=== PATIENT | female | born 1950 | race Caucasian/White ===

== ENCOUNTER 2017-11-18 14:01 | Day surgery (SDC) | payer MEDICARE, MEDICAID ==
[~2017-11-18] VITALS: Ht 167.6 cm; Wt 60.8 kg
[2017-11-18] VITALS (9 sets, daily range): BP systolic 136–163; BP diastolic 65–97
[~2017-11-18 14:01] MED LIST: ALBU8HFA PO; HYDR-565 PO; LISI-604 PO; oxygen
[2017-11-18] MEDS ORDERED: normal saline 1000ml 1,000 ML IV SCH (14:20)
[2017-11-18] MEDS ORDERED: LORazepam 0.5 MG tablet PO PRN (14:20)
[2017-11-18] MEDS ORDERED: diphenhydrAMINE 25mg capsule PO PRN (14:20)
[2017-11-18] MEDS ORDERED: LIDOcaine/PRILOcaine 5gm cream TP ONE (14:25)
[2017-11-18] MEDS ORDERED: AMLO-507 PO (14:33)
[2017-11-18] MEDS ORDERED: LIDOcaine 1% (10mg/ml) 2ml vial ONE (14:43)
[2017-11-18] MEDS ORDERED: verapamil 2.5 mg/ml inj IV ONE ×2 (16:07→16:14)
[2017-11-18] MEDS ORDERED: iohexol 350MG/ML 100ml bottle IV ONE (16:07)
[2017-11-18] MEDS ORDERED: fentaNYL/PF 50MCG/1 ML 2ML syringe ONE (16:07)
[2017-11-18] MEDS ORDERED: heparin 1,000unit/ml 10ml vial 10 ML ONE (16:07)
[2017-11-18] MEDS ORDERED: nitroGLYCERIN-Tridil 50MG/D5W 250 ML IV ONE (16:07)
[2017-11-18] MEDS ORDERED: midazolam 2 mg/2 ml injection ONE (16:07)
[2017-11-18] MEDS ORDERED: LIDOcaine 1%/PF (10mg/ml) 5ml vial ONE ×2 (16:08→16:41)
[2017-11-18] MEDS ORDERED: HYDROmorphone 1 mg/ml syringe ONE ×2 (16:35→16:50)
== END 2017-11-18 19:55 | disposition home or self-care (01) ==
LOC: SSTAY O 14:01
PROVIDERS: ATTEND Internal Medicine Interventional Cardiology
DX: I25.10 Atherosclerotic heart disease of native coronary artery without angina pectoris (principal); Z85.828 Personal history of other malignant neoplasm of skin; M19.90 Unspecified osteoarthritis, unspecified site; J45.909 Unspecified asthma, uncomplicated; I73.9 Peripheral vascular disease, unspecified; Z88.6 Allergy status to analgesic agent; Z88.0 Allergy status to penicillin; Z88.8 Allergy status to other drugs, medicaments and biological substances; Z88.2 Allergy status to sulfonamides
CPT/HCPCS: 93458; A6257; C1760; C1769; J1170; J1644; J2001; J2250; J3490; J7030; Q0163; Q9967; 99152; A4620; J3010

== ENCOUNTER 2018-11-23 13:56 | Day surgery (SDC) | payer MEDICARE, MEDICAID ==
[~2018-11-23] VITALS: Ht 167.6 cm; Wt 63.2 kg
[2018-11-23] VITALS (8 sets, daily range): BP systolic 137–164; BP diastolic 58–88
[~2018-11-23 13:56] MED LIST changes: +AMLO-507 PO; +HYDR-4353 PO; -HYDR-565 PO; -LISI-604 PO
[2018-11-23] MEDS ORDERED: normal saline 1000ml 1,000 ML IV SCH (14:15)
[2018-11-23] MEDS ORDERED: diphenhydrAMINE 25mg capsule PO ONE (14:15)
[2018-11-23] MEDS ORDERED: LORazepam 0.5 MG tablet PO ONE (14:15)
[2018-11-23] MEDS ORDERED: NITR0.4T51 SL (14:21)
[2018-11-23] MEDS ORDERED: AMLO5TAB4 PO (14:21)
[2018-11-23] MEDS ORDERED: fentaNYL/PF 50MCG/1 ML 2ML syringe ONE (16:00)
[2018-11-23] MEDS ORDERED: iohexol 350MG/ML 100ml bottle IV ONE (16:00)
[2018-11-23] MEDS ORDERED: LIDOcaine 1% (10mg/ml)w/preservative injection 20ml MDV ONE (16:00)
[2018-11-23] MEDS ORDERED: midazolam 2 mg/2 ml injection ONE ×2 (16:00→16:35)
[2018-11-23] MEDS ORDERED: HYDROmorphone 1 mg/ml syringe ONE (16:35)
[2018-11-23] MEDS ORDERED: OXAZEpam 15mg capsule PO PRN (17:25)
[2018-11-23] MEDS ORDERED: ondansetron/PF 4mg/2ml inj IV PRN (17:25)
[2018-11-23] MEDS ORDERED: HYDROcodone/acetaminophen 5mg/325mg tablet PO PRN (17:25)
[2018-11-23] MEDS ORDERED: HYDROcodone/acetaminophen 10/325mg tab PO PRN (17:25)
[2018-11-23] MEDS ORDERED: proCHLORperazine 10 MG/2 ml inj IV PRN (17:25)
== END 2018-11-23 18:58 | disposition home or self-care (01) ==
LOC: SSTAY O 13:56
PROVIDERS: ATTEND Internal Medicine Interventional Cardiology
DX: I25.118 Atherosclerotic heart disease of native coronary artery with other forms of angina pectoris (principal); I25.2 Old myocardial infarction; J45.998 Other asthma; I10 Essential (primary) hypertension; E78.00 Pure hypercholesterolemia, unspecified; M81.0 Age-related osteoporosis without current pathological fracture; M19.90 Unspecified osteoarthritis, unspecified site; I08.0 Rheumatic disorders of both mitral and aortic valves; I27.20 Pulmonary hypertension, unspecified; F17.210 Nicotine dependence, cigarettes, uncomplicated; M47.819 Spondylosis without myelopathy or radiculopathy, site unspecified; F19.11 Other psychoactive substance abuse, in remission; Z99.81 Dependence on supplemental oxygen; Z90.710 Acquired absence of both cervix and uterus; Z87.440 Personal history of urinary (tract) infections; Z90.89 Acquired absence of other organs; Z98.42 Cataract extraction status, left eye; Z86.19 Personal history of other infectious and parasitic diseases; Z85.828 Personal history of other malignant neoplasm of skin; Z95.828 Presence of other vascular implants and grafts; Z88.2 Allergy status to sulfonamides; Z88.0 Allergy status to penicillin; Z88.1 Allergy status to other antibiotic agents; Z88.5 Allergy status to narcotic agent; Z88.4 Allergy status to anesthetic agent; Z88.6 Allergy status to analgesic agent; Z86.79 Personal history of other diseases of the circulatory system; Z79.891 Long term (current) use of opiate analgesic; Z79.2 Long term (current) use of antibiotics; Z79.899 Other long term (current) drug therapy; Z88.8 Allergy status to other drugs, medicaments and biological substances; Z98.890 Other specified postprocedural states; Z82.49 Family history of ischemic heart disease and other diseases of the circulatory system
CPT/HCPCS: 93005; 93458; 99152; 99153; A6257; G0278; J1170; J1644; J2001; J2250; J3010; J7030; Q0163; Q9967; A4620; C1769

== ENCOUNTER 2023-11-13 09:43 | Day surgery (SDC) | payer MEDICARE, MEDICAID ==
[~2023-11-13] VITALS: Ht 167.6 cm; Wt 97.0 kg
[2023-11-13] VITALS (11 sets, daily range): BP systolic 131–190; BP diastolic 56–95; PULSE 74–109; RESP 12–27; TEMP 97.7; O2SAT 97–100
[~2023-11-13 09:43] MED LIST changes: -AMLO-507 PO; +HYDR2TAB7 PO; +NITR0.4T51 SL; +ONDA8TAB13 PO; +UMEC1DIS INH; +VIT C; +VITAMIN D3; +ZINC; +[UNRECOGNIZED DRUG - OTHER]; +[UNRECOGNIZED DRUG - OTHER]; +famotidine 20mg tablet PO ONE; -oxygen; +ringers solution, lacted 1,000 ML IV SCH
[2023-11-13] MEDS ORDERED: enalaprilat dihydrate 2.5mg/2ml vial IV PRN (11:20)
[2023-11-13] MEDS ORDERED: morphine 2 MG/ML inj. syringe IV PRN (11:20)
[2023-11-13] MEDS ORDERED: ondansetron/PF 4mg/2ml inj IV PRN (11:20)
[2023-11-13] MEDS ORDERED: labetalol 20mg/4ml (5mg/ml) syringe IV PRN (11:20)
[2023-11-13] MEDS ORDERED: meperidine/PF 25mg/ml syringe IV PRN ×3 (11:20)
[2023-11-13] MEDS ORDERED: proCHLORperazine 10 MG/2 ml inj IV PRN (11:20)
[2023-11-13] MEDS ORDERED: ringers solution, lacted 1,000 ML IV SCH (11:20)
[2023-11-13 11:25] LABS: BASOPHILS % (AUTO) 0.7 % (0-1); EOSINOPHILS # (AUTO) 0.1 X10'3 (0-0.9); EOSINOPHILS % (AUTO) 2.3 % (0-6); LYMPHOCYTES % (AUTO) 31.4 % (21-51); MEAN CORPUSCULAR HEMOGLOBIN 32.4 PG (27.0-31.0); MEAN CORPUSCULAR HGB CONC 33.6 g/dL (33.0-36.5); MEAN CORPUSCULAR VOLUME 96.4 FL (78-98); MEAN PLATELET VOLUME 8.3 FL (7.4-10.4); MONOCYTES # (AUTO) 0.6 X10'3 (0-0.9); MONOCYTES % (AUTO) 10.2 % (2-12); NEUTROPHILS # (AUTO) 3.5 X10'3 (1.8-7.7); NEUTROPHILS % (AUTO) 55.4 % (42-75); PRE OP HEMATOCRIT 42.6 % (35.0-45.0); PRE OP HEMOGLOBIN 14.3 g/dL (12.0-16.0); PRE OP PLATELET COUNT 237 X10'3 (140-440); PRE OP WHITE BLOOD COUNT 6.2 10'3 (4.8-10.8); RED BLOOD COUNT 4.42 X10'6 (4.20-5.60); RED CELL DISTRIBUTION WIDTH 13.3 % (11.5-14.5)
[2023-11-13 11:53] LABS: ALANINE AMINOTRANSFERASE 20 U/L (12-78); ALBUMIN 4.1 G/DL (3.4-5.0); ALBUMIN/GLOBULIN RATIO 1.1 (1.1-1.5); ALKALINE PHOSPHATASE 77 IU/L (46-116); ANION GAP 7 (8-16); ASPARTATE AMINO TRANSFERASE 22 U/L (10-37); BILIRUBIN,TOTAL 0.4 MG/DL (0.1-1.0); BLOOD UREA NITROGEN 17 MG/DL (7-18); BUN/CREATININE RATIO 22.7 (10.0-20.0); CALCIUM 9.3 MG/DL (8.5-10.1); CHLORIDE 102 MMOL/L (99-107); CREATININE 0.75 MG/DL (0.40-0.90); GLUCOSE 103 MG/DL (70-104); SODIUM 140 MMOL/L (135-145); TOTAL CARBON DIOXIDE 31.2 MMOL/L (24-32); eCRCL 63 ML/MIN; eGFR 76 ML/MIN
[2023-11-13] MEDS ORDERED: ipratropium/albuterol 3ml nebule NEB STA (12:11)
[2023-11-13] MEDS ORDERED: sevoflurane 250ml liquid IH ONE (12:32)
[2023-11-13] MEDS ORDERED: midazolam 1 mg/ML 2ml injection ONE (12:37)
[2023-11-13] MEDS ORDERED: meperidine/PF 25mg/ml syringe ONE (12:38)
[2023-11-13] MEDS ORDERED: LIDOcaine 2% (20mg/ml) 5ml vial ONE (12:45)
[2023-11-13] MEDS ORDERED: propofol inj 20 ML IV ONE (12:45)
[2023-11-13] MEDS ORDERED: rocuronium 10mg/ml inj IV ONE (13:00)
[2023-11-13] MEDS ORDERED: dexamethasone sod phosphate 4mg/ml inj. ONE (13:00)
[2023-11-13] MEDS ORDERED: metoprolol tartrate 1mg/ml inj IV ONE (13:00)
[2023-11-13] MEDS ORDERED: ondansetron/PF 4mg/2ml inj ONE (13:36)
== END 2023-11-13 15:14 | disposition home or self-care (01) ==
LOC: PAS 09:43
PROVIDERS: ATTEND Internal Medicine Critical Care Medicine
DX: R91.8 Other nonspecific abnormal finding of lung field (principal); C34.11 Malignant neoplasm of upper lobe, right bronchus or lung; I73.9 Peripheral vascular disease, unspecified; J43.9 Emphysema, unspecified; I10 Essential (primary) hypertension; G89.29 Other chronic pain; M19.90 Unspecified osteoarthritis, unspecified site; F17.210 Nicotine dependence, cigarettes, uncomplicated; Z98.890 Other specified postprocedural states; Z86.19 Personal history of other infectious and parasitic diseases; Z88.0 Allergy status to penicillin; Z88.1 Allergy status to other antibiotic agents; Z88.5 Allergy status to narcotic agent; Z88.4 Allergy status to anesthetic agent; Z88.8 Allergy status to other drugs, medicaments and biological substances; Z79.899 Other long term (current) drug therapy; Z99.81 Dependence on supplemental oxygen; Z80.1 Family history of malignant neoplasm of trachea, bronchus and lung
CPT/HCPCS: 31628; 31629; 31653; 36415; 71045; 71250; 80053; 82948; 85025; 87015; 87070; 87102; 87116; 87206; 94640; 94760; J1100; J2175; J2250; J2405; J2704; J3490; J7120; Z7506; Z7508; Z7512; 31622; 31625; 31626; 31627; 31654; A4615; A4618